=== PATIENT | male | born 1955 | race Caucasian/White ===

== ENCOUNTER → 2023-11-10 12:51 | Outpatient (REF) | payer MEDICARE, SELFPAY | LOC: RAD 12:51 | PROVIDERS: ATTENDING PHYSICIAN Nurse Practitioner Adult Health; FAMILY PHYSICIAN Internal Medicine | DX: M48.02 Spinal stenosis, cervical region (principal); M47.812 Spondylosis without myelopathy or radiculopathy, cervical region | CPT/HCPCS: 72052; 72125 ==

== ENCOUNTER → 2023-11-27 11:47 | Outpatient (REF) | payer MEDICARE, SELFPAY | LOC: CLAB 11:47 | PROVIDERS: ATTENDING PHYSICIAN Physician Assistant | DX: R35.0 Frequency of micturition (principal); R30.0 Dysuria; Z85.51 Personal history of malignant neoplasm of bladder | CPT/HCPCS: 87086; 88112 ==

== ENCOUNTER → 2023-11-27 12:02 | Emergency (ER) | payer MEDICARE, SELFPAY ==
[2023-11-27 12:09] VITALS: BP 140/72
[2023-11-27 12:29] LABS: Urine Albumin Negative (Neg - Trace); Urine Bilirubin Negative (Negative); Urine Character Clear (Clear); Urine Color Yellow; Urine Glucose Negative (Negative); Urine Ketone Negative (Negative); Urine Leukocyte Negative (Negative); Urine Nitrite Negative (Negative); Urine Occult Blood Trace (Negative); Urine Specific Gravity 1.025 (<1.030); Urine Urobilinogen Negative (Neg - 1+)
[2023-11-27 12:31] LABS: % Basophils 0.4 % (0-2); % Eosinophils 1.3 % (0-6); % Immature Granulocytes 0.3 % (0-0.5); % Lymphocytes 24.3 % (20.5-51.1); % Neutrophils 63.7 % (42.2-75.2); Absolute Eosinophils 0.1 10^3/uL (0-0.7); Absolute Lymphocytes 1.8 10^3/uL (1.2-3.4); Absolute Monocytes 0.7 10^3/uL (0.1-0.6); Absolute Neutrophils 4.7 10^3/uL (1.4-6.5); Hematocrit 44.3 % (39.0-52.0); Hemoglobin 14.7 g/dL (13.0-18.0); Mean Corp Hgb Conc. 33.2 g/dL (33.0-37.0); Mean Corpuscular Hgb 31.5 pg (27.0-31.0); Mean Corpuscular Volume 94.9 fL (80.0-94.0); Mean Platelet Volume 9.5 fL (7.4-10.4); Nucleated Red Blood Cells % 0 % (-); Platelet Count 277 10^3/uL (130-400); Red Blood Cell Count 4.67 10^6/uL (4.70-6.10); Red Cell Dist. Width 11.9 % (11.5-14.5); White Blood Cell Count 7.4 10^3/uL (4.8-10.8)
[2023-11-27 12:42] LABS: Urine Red Blood Cell 0-2 /HPF (0-2)
[2023-11-27 12:43] LABS: ALT (SGPT) 19 U/L (0-50); AST (SGOT) 22 U/L (17-59); Albumin 4.3 g/dl (3.5-5.0); Alkaline Phosphatase 65 U/L (38-126); Blood Urea Nitrogen 31 mg/dl (9-20); Calcium 9.7 mg/dl (8.4-10.2); Carbon Dioxide 31 mmol/L (22-30); Chloride 103 mmol/L (98-107); Glucose 105 mg/dl (70-99); Potassium 4.7 mmol/L (3.5-5.1); Sodium 137 mmol/L (135-145); Total Bilirubin 1.1 mg/dl (0.2-1.3); Total Protein 7.2 g/dl (6.3-8.2); eGFR > 60.00
--- NOTE | 2023-11-27 13:01 | ED.GENMED ---
History of Present Illness
General
Chief Complaint: Flank Pain
Source: patient
Exam Limitations: none
Time Seen by Provider: 11/27/23 12:29
Travel History
Have you had any contact with someone who has COVID-19?: No
Do you have any symptoms of coronavirus? Fever > 100 degrees, chills, cough, shortness of breath, sore throat, loss of taste or smell, muscle aches, or headache?: No
History of Present Illness
History of Present Illness:
Patient presents to the emergency department right flank pain x 4 days. States pain is in right lower quadrant and radiates to right flank. Associated with mild urinary symptoms, he states that 'it does not feel like I am urinating when I am'.
Denies fevers or chills. Denies nausea or vomiting. No pain in chest or back. No associated rash. Does have a history of stone. Also has a history of bladder cancer without any recent treatments
Past History
Past History
ED Past Medical History: Cancer, Hypercholesterolemia and Other (Restless leg syndrome); Negative HTN, IDDM or NIDDM
ED Past Surgical History: Orthopedic, Urological (Bladder, no history of kidney stone) and Other (Inguinal hernia)
Social History
Tobacco: Non-smoker
Alcohol: Occasional
Drug: None
Personal: Single
Living: with family
Employment: Retired
Family History
Family History: Other (Noncontributory); Negative Diabetes, Early CAD or CAD
Phy Exam
Physical Exam
Physical Exam:
GENERAL APPEARANCE: NAD, well developed/ well nourished
EYES lids/conjunctiva normal
EARS/NOSE/THROAT Mucous membranes moist
HEAD/NECK normocephalic atraumatic, neck is supple.
RESPIRATORY respiratory effort normal, speaks in full sentences, no accessory muscle use. Lungs clear to auscultation without rhonchi, wheezes, rales
CARDIAC Regular rate and rhythm, no edema.
ABDOMINAL Soft, ND/NT. No pulsatile masses on exam, rebound tenderness, Montez sign or pain over Mcburney's point.
BACK No CVAT, no rashes or lesions
SKIN Warm, pink and dry. No rashes
NEUROLOGICAL Speech is clear and appropriate. Normal level of consciousness. 5/5 strength in all extremities.
PSYCH Normal mood and affect. Judgement/competence is appropriate
Course
Orders/Labs/Results
Orders:
Orders
11/27/23 11:47
Urine Culture Routine
ASH Source: Urine
Specimen Description:
Obtained by: [facility]
Date Specimen was Collected: 11/27/23
Time Specimen was Collected: 11:47
11/27/23 12:20
CMP [Comprehensive Metabolic Panel] Urgent
Complete Blood Count/With Diff Urgent
Urinalysis Reflex To Culture Urgent
Date Specimen was Collected: 11/27/23
Time Specimen was Collected: 12:14
Urine Microscopic Reflex Cult Urgent
11/27/23 12:53
CT Abd/pelvis W Iv Cont Urgent
Comment:
Reason For Exam: RLQ pain, hx of bladder ca, appendicitis vs stone
0.9% Sodium Chloride 500 ml [Nss] 500 ml IV 500 mls/hr
Abnormal Lab Results
11/27/23
12:20
RBC 4.67 L 10^6/uL
(4.70-6.10)
MCV 94.9 H fL
(80.0-94.0)
MCH 31.5 H pg
(27.0-31.0)
Absolute Monos (auto) 0.7 H 10^3/uL
(0.1-0.6)
Monocytes % 10.0 H %
(1.7-9.3)
Carbon Dioxide 31 H mmol/L
(22-30)
BUN 31 H mg/dl
(9-20)
Glucose 105 H mg/dl
(70-99)
Ur Occult Blood Reflex Trace A
(Negative)
11/27/23 12:20
11/27/23 12:20
Vital Signs
Initial and Last Documented VS:
Initial Vital Signs
Temp Pulse Resp BP Pulse Ox
97.7 F 54 16 140/72 99
11/27/23 12:09 11/27/23 12:09 11/27/23 12:09 11/27/23 12:09 11/27/23 12:09
Last Documented Vital Signs
Temp Pulse Resp BP Pulse Ox
97.7 F 54 16 140/72 99
11/27/23 12:09 11/27/23 12:09 11/27/23 12:09 11/27/23 12:09 11/27/23 12:09
*Critical Care Note
Total Time (30-74mins, 75-104mins- exclusive of procedures): Not Applicable
ED Attending Note
ED Attending Note
ED Attending Note:
Patient presents to the emergency department with 4 days of right flank pain with trace hematuria. Given his history of kidney stones, top of the differential is nephrolithiasis, however given the location of his pain as well as history of cancer,
will CT with contrast to rule out other etiologies. Patient is nontoxic and well-appearing. Declines any pain medicine at this time.
CT negative for acute process. Suspect constipation vs possible early zoster vs possible lumbosacral radiculopathy
instructed to follow up with his urologist in the next week
-
Portions of this chart may have been created with voice recognition software.� Occasional wrong word or��sound alike� substitutions may have occurred due to the inherent limitations of voice recognition software.
Discharge Plan
Departure
Patient Disposition: Home (Routine Discharge)
Date of Disposition: 11/27/23
Time of Disposition: 15:33
Patient with high blood pressure during this ER visit?: Yes
Discharge Problem:
Acute flank pain, Hematuria
Instructions: Flank Pain (DC)
Prescriptions:
No Action
ropinirole 0.5 MG tablet
0.25 mg PO DAILY
Ashwagandha
1 tab PO DAILY
gabapentin 600 mg Tablet
600 mg PO DAILY
rosuvastatin 5 mg Tablet
5 mg PO DAILY
latanoprost 0.005 % Drops
1 drp OPHTHALMIC (EYE) DAILY
magnesium Tablet
1 tab PO DAILY
Sutab 1.479-0.188- 0.225 gram Tablet
1 tab PO PER PKG DIR
Multi Vitamin
1 tab PO DAILY
vitamin F48-osyly acid
1 tab PO DAILY
Referrals:
Guilherme Zarate MD [Family Provider] -
Activity Restrictions/Additional Instructions:
please make a follow up appointment with your urologist as soon as possible
return to ER with rash or new or worsening symptoms
Interventions
Interventions:
*ED COVID-19 Vaccine History Last Done: 11/27/23 12:09
MI-Mfnque-Vkmtehbyau Assessment Last Done: 11/27/23 13:30
ED-Male Genitourinary Assessment Last Done: 11/27/23 13:30
Discharge Date and Time
Print Language: NIGERIAN
[2023-11-27] MEDS: NSS 500 IV (13:34)
== END | disposition home or self-care (01) ==
LOC: EMR 12:02
PROVIDERS: Emergency Medicine; EMERGENCY PHYSICIAN Emergency Medicine; FAMILY PHYSICIAN Internal Medicine; REFERRING PHYSICIAN Physician Assistant
DX: R10.9 Unspecified abdominal pain (principal); R31.9 Hematuria, unspecified; R03.0 Elevated blood-pressure reading, without diagnosis of hypertension; Z87.442 Personal history of urinary calculi; Z85.51 Personal history of malignant neoplasm of bladder
CPT/HCPCS: 99285; 96360; 74177; 80053; 81003; 81015; 85025; Q9967

== ENCOUNTER → 2023-12-27 10:16 | Outpatient (REF) | payer MEDICARE, SELFPAY ==
[2023-12-28 00:52] LABS: Urine Albumin Negative (Neg - Trace); Urine Bilirubin Negative (Negative); Urine Character Clear (Clear); Urine Color Yellow; Urine Glucose Negative (Negative); Urine Ketone Negative (Negative); Urine Leukocyte Negative (Negative); Urine Nitrite Negative (Negative); Urine Occult Blood Negative (Negative); Urine Urobilinogen Negative (Neg - 1+)
== END ==
LOC: REG 10:16
PROVIDERS: ATTENDING PHYSICIAN Specialist; FAMILY PHYSICIAN Internal Medicine
DX: N39.0 Urinary tract infection, site not specified (principal); N40.1 Benign prostatic hyperplasia with lower urinary tract symptoms
CPT/HCPCS: 36415; 81003; 87086

== ENCOUNTER → 2024-02-20 12:10 | Outpatient (REF) | payer MEDICARE, SELFPAY ==
[2024-02-20 13:56] LABS: Glycohemoglobin (HgbA1c) 5.3 % (4.0-5.6)
== END ==
LOC: REG 12:10
PROVIDERS: ATTENDING PHYSICIAN Specialist; FAMILY PHYSICIAN Internal Medicine
DX: Z12.5 Encounter for screening for malignant neoplasm of prostate (principal); G62.9 Polyneuropathy, unspecified; Z79.899 Other long term (current) drug therapy
CPT/HCPCS: 36415; 83036; G0103

== ENCOUNTER 2024-02-21 22:44 | Emergency (ER) | payer MEDICARE, SELFPAY ==
[2024-02-21 23:04] VITALS: BP 164/84
== END 2024-02-22 01:22 | disposition left against medical advice (07) ==
LOC: EMR 22:44
PROVIDERS: EMERGENCY PHYSICIAN Emergency Medicine
DX: R68.84 Jaw pain (principal); Y04.2XXA Assault by strike against or bumped into by another person, initial encounter; Z53.21 Procedure and treatment not carried out due to patient leaving prior to being seen by health care provider
CPT/HCPCS: 70110

== ENCOUNTER → 2024-05-07 08:03 | Outpatient (REF) | payer MEDICARE, SELFPAY ==
[2024-05-07 08:57] LABS: % Basophils 0.4 % (0-2); % Eosinophils 1.2 % (0-6); % Immature Granulocytes 0.4 % (0-0.5); % Lymphocytes 22.8 % (20.5-51.1); % Monocytes 8.7 % (1.7-9.3); % Neutrophils 66.5 % (42.2-75.2); Absolute Eosinophils 0.1 10^3/uL (0-0.7); Absolute Lymphocytes 1.7 10^3/uL (1.2-3.4); Absolute Monocytes 0.6 10^3/uL (0.1-0.6); Absolute Neutrophils 4.9 10^3/uL (1.4-6.5); Hematocrit 44.5 % (39.0-52.0); Hemoglobin 14.9 g/dL (13.0-18.0); Mean Corp Hgb Conc. 33.5 g/dL (33.0-37.0); Mean Corpuscular Hgb 31.6 pg (27.0-31.0); Mean Corpuscular Volume 94.5 fL (80.0-94.0); Mean Platelet Volume 9.8 fL (7.4-10.4); Nucleated Red Blood Cells % 0 % (-); Platelet Count 273 10^3/uL (130-400); Red Blood Cell Count 4.71 10^6/uL (4.70-6.10); Red Cell Dist. Width 11.9 % (11.5-14.5); White Blood Cell Count 7.4 10^3/uL (4.8-10.8)
[2024-05-07 08:59] LABS: Urine Albumin Negative (Neg - Trace); Urine Bilirubin Negative (Negative); Urine Character Clear (Clear); Urine Color Yellow; Urine Glucose Negative (Negative); Urine Ketone Negative (Negative); Urine Leukocyte Negative (Negative); Urine Nitrite Negative (Negative); Urine Occult Blood Negative (Negative); Urine Urobilinogen Negative (Neg - 1+)
[2024-05-07 09:30] LABS: Blood Urea Nitrogen 18 mg/dl (9-20); Calcium 9.6 mg/dl (8.4-10.2); Carbon Dioxide 29 mmol/L (22-30); Chloride 102 mmol/L (98-107); Glucose 91 mg/dl (70-99); HDL Cholesterol 57 mg/dl; LDL Cholesterol, Calculated 91 mg/dl; Sodium 141 mmol/L (135-145); Total Cholesterol 189 mg/dl (50-199); Triglyceride 206 mg/dl (10-149); Very Low Density Lipoprotein 41 mg/dl (0-30); eGFR > 60.00
[2024-05-07 09:56] LABS: TSH 1.53 uIU/ml (0.47-4.68)
== END ==
LOC: REG 08:03
DX: Z00.00 Encounter for general adult medical examination without abnormal findings (principal); Z85.51 Personal history of malignant neoplasm of bladder; G25.81 Restless legs syndrome; M51.36 Other intervertebral disc degeneration, lumbar region; F41.9 Anxiety disorder, unspecified; G47.00 Insomnia, unspecified; G62.9 Polyneuropathy, unspecified; R13.10 Dysphagia, unspecified; E78.1 Pure hyperglyceridemia; R53.83 Other fatigue
CPT/HCPCS: 36415; 80048; 80061; 81003; 84443; 85025

== ENCOUNTER → 2024-07-31 07:06 | Outpatient (REF) | payer MEDICARE, SELFPAY ==
[2024-07-31 07:41] LABS: % Basophils 0.2 % (0-2); % Eosinophils 0.4 % (0-6); % Immature Granulocytes 0.5 % (0-0.5); % Lymphocytes 16.8 % (20.5-51.1); % Monocytes 7.2 % (1.7-9.3); % Neutrophils 74.9 % (42.2-75.2); Absolute Lymphocytes 1.4 10^3/uL (1.2-3.4); Absolute Monocytes 0.6 10^3/uL (0.1-0.6); Absolute Neutrophils 6.2 10^3/uL (1.4-6.5); Hematocrit 45.8 % (39.0-52.0); Hemoglobin 15.3 g/dL (13.0-18.0); Mean Corp Hgb Conc. 33.4 g/dL (33.0-37.0); Mean Corpuscular Volume 92.9 fL (80.0-94.0); Mean Platelet Volume 9.4 fL (7.4-10.4); Nucleated Red Blood Cells % 0 % (-); Platelet Count 287 10^3/uL (130-400); Red Blood Cell Count 4.93 10^6/uL (4.70-6.10); Red Cell Dist. Width 12.2 % (11.5-14.5); White Blood Cell Count 8.2 10^3/uL (4.8-10.8)
[2024-07-31 07:58] LABS: Erythrocyte Sed Rate 9 mm/hour (0-20)
[2024-07-31 08:09] LABS: ALT (SGPT) 20 U/L (0-50); AST (SGOT) 24 U/L (17-59); Albumin 4.2 g/dl (3.5-5.0); Alkaline Phosphatase 53 U/L (38-126); Blood Urea Nitrogen 21 mg/dl (9-20); Calcium 9.5 mg/dl (8.4-10.2); Carbon Dioxide 31 mmol/L (22-30); Chloride 102 mmol/L (98-107); Glucose 109 mg/dl (70-99); Potassium 4.7 mmol/L (3.5-5.1); Sodium 138 mmol/L (135-145); Total Bilirubin 1.4 mg/dl (0.2-1.3); Total Protein 6.8 g/dl (6.3-8.2); eGFR > 60.00
[2024-07-31 08:12] LABS: C-Reactive Protein < 5.00 mg/L (0.0-10.00)
== END ==
LOC: REG 07:06
PROVIDERS: ATTENDING PHYSICIAN Internal Medicine
DX: R51.9 Headache, unspecified (principal)
CPT/HCPCS: 36415; 80053; 85025; 85652; 86140

== ENCOUNTER → 2024-08-02 14:39 | Outpatient (REF) | payer MEDICARE, SELFPAY | LOC: HWRAD 14:39 | PROVIDERS: ATTENDING PHYSICIAN Internal Medicine | DX: R51.9 Headache, unspecified (principal) | CPT/HCPCS: 70486 ==

== ENCOUNTER 2024-09-02 06:12 | Day surgery (SDC) | payer MEDICARE, SELFPAY ==
[2024-09-02 08:16] VITALS: BMI 20.6
[2024-09-02 08:22] VITALS: BP 135/70
[2024-09-02 08:31] VITALS: BMI 20.6
[2024-09-02 10:17] VITALS: BP 102/68
[2024-09-02 10:30] VITALS: BP 121/66
[2024-09-02 10:45] VITALS: BP 120/69
== END 2024-09-02 10:55 | disposition home or self-care (01) ==
LOC: SDS 06:12
PROVIDERS: ATTENDING PHYSICIAN Internal Medicine Gastroenterology
DX: Z12.11 Encounter for screening for malignant neoplasm of colon (principal); D12.3 Benign neoplasm of transverse colon; K64.0 First degree hemorrhoids; Z86.0101 Personal history of adenomatous and serrated colon polyps; Z98.890 Other specified postprocedural states
CPT/HCPCS: 45385; 45380; 88305

== ENCOUNTER → 2025-05-12 09:46 | Outpatient (REF) | payer MEDICARE, SELFPAY ==
[2025-05-12 13:26] LABS: Vitamin D, 25-OH*** 51.9 ng/mL (30-80)
[2025-05-12 14:15] LABS: Folate 11.5 ng/ml (2.76-20); Vitamin B12 923 pg/ml (239-931)
[2025-05-13 09:44] LABS: CRP, Ultra Sensitive 1.21 mg/L (0.30-5.00)
[2025-05-13 14:49] LABS: Syphilis/T. pallidum Ab Reflex Negative (Negative)
[2025-05-14 07:58] LABS: Copper, Serum 97.3 ug/dL (70.0-140.0)
[2025-05-14 09:24] LABS: Serine Protease-3, IgG 0 AU/mL (0-19)
[2025-05-14 16:58] LABS: SSA 52 (Ro)(ENA) Ab, IgG 1 AU/mL (0-40); SSA 60 (Ro)(ENA) Ab, IgG 0 AU/mL (0-40); SSB (La)(ENA) Ab, IgG 0 AU/mL (0-40)
== END ==
LOC: REG 09:46
PROVIDERS: ATTENDING PHYSICIAN Psychiatry & Neurology Neurology; FAMILY PHYSICIAN Internal Medicine
DX: R41.89 Other symptoms and signs involving cognitive functions and awareness (principal); G62.9 Polyneuropathy, unspecified; H34.12 Central retinal artery occlusion, left eye; F95.1 Chronic motor or vocal tic disorder; R47.01 Aphasia; H53.8 Other visual disturbances; G25.81 Restless legs syndrome; F95.2 Tourette's disorder; S03.00XD Dislocation of jaw, unspecified side, subsequent encounter; R20.0 Anesthesia of skin; M47.816 Spondylosis without myelopathy or radiculopathy, lumbar region; R25.1 Tremor, unspecified; M48.061 Spinal stenosis, lumbar region without neurogenic claudication; K21.9 Gastro-esophageal reflux disease without esophagitis; K22.70 Barrett's esophagus without dysplasia; R35.0 Frequency of micturition; R35.1 Nocturia; N40.1 Benign prostatic hyperplasia with lower urinary tract symptoms; E78.5 Hyperlipidemia, unspecified; Z79.899 Other long term (current) drug therapy
CPT/HCPCS: 36415; 82164; 82306; 82525; 82550; 82607; 82652; 82746; 83516; 84155; 84165; 84425; 84443; 84446; 85652; 86141; 86235; 86430; 86618; 86780

== ENCOUNTER → 2025-05-28 07:42 | Outpatient (REF) | payer MEDICARE, SELFPAY ==
[2025-05-28 08:45] LABS: Urine Character Clear (Clear)
[2025-05-28 09:05] LABS: Urine Red Blood Cell 0-2 /HPF (0-2); Urine Squamous Cell 0-2 /LPF (Few); Urine White Cell 0-2 /HPF (0-5)
[2025-05-28 09:07] LABS: Hematocrit 42.2 % (39.0-52.0); Hemoglobin 14.3 g/dL (13.0-18.0); Mean Corp Hgb Conc. 33.9 g/dL (33.0-37.0); Mean Corpuscular Volume 93.6 fL (80.0-94.0); Nucleated Red Blood Cells % 0 % (-); Platelet Count 249 10^3/uL (130-400); Red Cell Dist. Width 11.9 % (11.5-14.5)
[2025-05-28 09:31] LABS: ALT (SGPT) 20 U/L (0-50); AST (SGOT) 20 U/L (17-59); Albumin 3.9 g/dl (3.5-5.0); Alkaline Phosphatase 53 U/L (38-126); Blood Urea Nitrogen 24 mg/dl (9-20); Calcium 9.0 mg/dl (8.4-10.2); Carbon Dioxide 29 mmol/L (22-30); Chloride 107 mmol/L (98-107); Glucose 94 mg/dl (70-99); HDL Cholesterol 56 mg/dl; LDL Cholesterol, Calculated 105 mg/dl; Potassium 4.7 mmol/L (3.5-5.1); Sodium 139 mmol/L (135-145); Total Protein 6.8 g/dl (6.3-8.2); Very Low Density Lipoprotein 32 mg/dl (0-30); eGFR > 60.00
[2025-05-28 10:32] LABS: Glycohemoglobin (HgbA1c) 5.2 % (4.0-5.6)
== END ==
LOC: REG 07:42
PROVIDERS: ATTENDING PHYSICIAN Internal Medicine
DX: R73.02 Impaired glucose tolerance (oral) (principal); E78.5 Hyperlipidemia, unspecified
CPT/HCPCS: 36415; 80053; 80061; 81003; 81015; 83036; 85025